=== PATIENT | female | born 1965 | race Caucasian/White ===

== ENCOUNTER → 2020-08-07 | Outpatient (CLI) | payer MEDICARE | LOC: EXRD 07-24 10:45 | DX: R59.0 Localized enlarged lymph nodes (principal); Z78.0 Asymptomatic menopausal state | CPT/HCPCS: 76536; 77080 ==

== ENCOUNTER → 2020-09-29 | Outpatient (CLI) | payer MEDICARE, OTHER | LOC: EXRD 15:39 | DX: M25.551 Pain in right hip (principal) | CPT/HCPCS: 73502 ==

== ENCOUNTER → 2020-11-03 | Outpatient (CLI) | payer MEDICARE, OTHER | END | disposition home or self-care (01) | LOC: US 09:47 | DX: R59.1 Generalized enlarged lymph nodes (principal) ==

== ENCOUNTER → 2021-05-28 | Outpatient (CLI) | payer MEDICARE ==
[~2021-05-28] MED LIST: AZELASTINE137 MCG/0.; BUSPIRONE HCL10 MG PO; DITROPAN 5 MG TA5 MG PO; DOCUSATE SODIU250 MG PO; HYDROCHLOROTHIA25 MG PO; HYDROCODONE-AC1 EACH PO; IBUPROFEN600 MG PO; LIPITOR10 MG PO; LISINOPRIL5 MG PO; PROTONIX40 MG PO; PROVENTIL HFA6.7 GM INH; ROPINIROLE HCL1 MG PO; SINGULAIR10 MG PO; TOPROL XL25 MG PO; TRAZODONE HCL100 MG PO; TYLENOL ARTHRITIS PO; VENLAFAXINE HCL75 M2 PO; VITAMIN B12 PO; VITAMIN C PO; VITAMIN D3 PO; XYZAL5 MG PO; [UNRECOGNIZED DRUG - OTHER] PO
[2021-05-28 13:08] LABS: HEMOGLOBIN 14.2 gm/dl (12.3-15.3); RED BLOOD COUNT 4.78 M/UL (4.00-5.10); WHITE BLOOD COUNT 7.3 K/UL (4.5-11.0)
[2021-05-28 13:37] LABS: BUN/CREATININE RATIO 32 (0-10)
== END ==
LOC: OPSV2 12:11
PROVIDERS: Obstetrics & Gynecology
DX: Z01.818 Encounter for other preprocedural examination (principal); N95.0 Postmenopausal bleeding; R00.1 Bradycardia, unspecified
CPT/HCPCS: 36415; 71046; 80053; 81001; 85025; 93005

== ENCOUNTER 2021-06-02 08:31 | Day surgery (SDC) | payer MEDICARE ==
[~2021-06-02] VITALS: Ht 170.2 cm; Wt 99.8 kg
[~2021-06-02 08:31] MED LIST changes: -DITROPAN 5 MG TA5 MG PO; -DOCUSATE SODIU250 MG PO; -HYDROCODONE-AC1 EACH PO; -IBUPROFEN600 MG PO
[2021-06-02] MEDS ORDERED: IBUPROFEN600 MG PO (11:10)
[2021-06-02] MEDS ORDERED: DITROPAN 5 MG TA5 MG PO (11:10)
[2021-06-02] MEDS ORDERED: HYDROCODONE-AC1 EACH PO (11:10)
[2021-06-02] MEDS ORDERED: DOCUSATE SODIU250 MG PO (11:10)
== END 2021-06-02 16:35 | disposition home or self-care (01) ==
LOC: OR 08:31 → M/S 13:40 → OR 16:35
DX: D25.9 Leiomyoma of uterus, unspecified (principal); N80.0 Endometriosis of uterus; N72 Inflammatory disease of cervix uteri; F41.0 Panic disorder [episodic paroxysmal anxiety]; F32.A Depression, unspecified; I10 Essential (primary) hypertension; E78.5 Hyperlipidemia, unspecified; G47.30 Sleep apnea, unspecified; K21.9 Gastro-esophageal reflux disease without esophagitis; E66.01 Morbid (severe) obesity due to excess calories; Z68.34 Body mass index [BMI] 34.0-34.9, adult; Z98.890 Other specified postprocedural states; Z79.899 Other long term (current) drug therapy; Z20.822 Contact with and (suspected) exposure to COVID-19
CPT/HCPCS: C1769; J0690; J1100; J1885; J2001; J2250; J2405; J2704; J2710; J3010; J7120; U0002